=== PATIENT | female | born 1990 | race American Indian/Alaskan Native ===

== ENCOUNTER 2019-05-29 07:56 | Emergency (ER) | payer SELFPAY ==
[2019-05-29 08:02] VITALS: BP 143/89
--- NOTE | 2019-05-29 08:44 | Emergency Department Report ---
ED Abdominal Pain HPI - General Chief Complaint: Abdominal Pain Stated Complaint: SHARP PAIN/N/V/CRAMPING Time Seen by Provider: 05/29/19 08:33 Source: patient Mode of arrival: Ambulatory Limitations: No Limitations - History of Present Illness Initial Comments: 29-year-old -[place] female presents to the emergency room complaining of right lower quadrant abdominal pain since this morning. Patient reports nausea vomiting but denies any fever diarrhea or constipation. Patient does admit to pain with urination. Patient denies any vaginal discharge vaginal bleeding. She does admit to having sex with men unprotected. She reports pain is constant with walking and better with sitting. Denies any blood in urine. MD Complaint: abdominal pain -: This morning Location: RLQ Radiation: none Severity scale (0 -10): 6 Quality: cramping Consistency: intermittent Improves With: rest Worsens With: movement Associated Symptoms: nausea, vomiting, dysuria - Related Data LMP Date: 04/18/19 Previous Rx's Medication Instructions Recorded Last Taken Type Vit-Fe Fumar-FA [ 1 tab PO QDAY #90 tablet 05/29/19 Unknown Rx Vitamin] Allergies Allergy/AdvReac Type Severity Reaction Status Date / Time No Known Allergies Allergy Unverified 05/29/19 07:59 ED Review of Systems ROS: Stated complaint: SHARP PAIN/N/V/CRAMPING Other details as noted in HPI Comment: All other systems reviewed and negative Gastrointestinal: abdominal pain, nausea, vomiting Genitourinary: dysuria ED Past Medical Hx - Past Medical History Previous Medical History?: No - Surgical History Past Surgical History?: No - Social History Smoking Status: Never Smoker Substance Use Type: None - Medications Home Medications: Home Medications Medication Instructions Recorded Confirmed Last Taken Type Vit-Fe Fumar-FA [ 1 tab PO QDAY #90 tablet 05/29/19 Unknown Rx Vitamin] ED Physical Exam - General Limitations: No Limitations General appearance: alert, in no apparent distress - Head Head exam: Present: atraumatic, normocephalic - Eye Eye exam: Present: normal appearance - ENT ENT exam: Present: mucous membranes moist - Neck Neck exam: Present: normal inspection - Respiratory Respiratory exam: Present: normal lung sounds bilaterally. Absent: respiratory distress - Cardiovascular Cardiovascular Exam: Present: regular rate, normal rhythm. Absent: systolic murmur, diastolic murmur, rubs, gallop - GI/Abdominal GI/Abdominal exam: Present: soft, tenderness. Absent: distended - Rectal Rectal exam: Present: deferred - Neurological Exam Neurological exam: Present: alert, oriented X3, normal gait - Psychiatric Psychiatric exam: Present: normal affect, normal mood - Skin Skin exam: Present: warm, dry, intact, normal color. Absent: rash ED Course Vital Signs 05/29/19 07:59 Temperature 98.2 F Pulse Rate 103 H Respiratory 16 Rate Blood Pressure 143/89 O2 Sat by Pulse 99 Oximetry ED Medical Decision Making - Lab Data Result diagrams: 05/29/19 08:11 05/29/19 08:11 - Medical Decision Making 29-year-old -[place] female presents to the emergency room complaining of right lower quadrant abdominal pain since this morning. Patient reports nausea vomiting but denies any fever diarrhea or constipation. Patient does admit to pain with urination. Patient denies any vaginal discharge vaginal bleeding. She does admit to having sex with men unprotected. She reports pain is constant with walking and better with sitting. Denies any blood in urine. Critical care attestation.: If time is entered above; I have spent that time in minutes in the direct care of this critically ill patient, excluding procedure time. ED Disposition Clinical Impression: Qualifiers: Weeks of gestation: less than 8 weeks Qualified Code(s): Z3A.01 - Less than 8 weeks gestation of Disposition: DC-01 TO HOME OR SELFCARE Is pt being admited?: No Does the pt Need Aspirin: No Condition: Stable Instructions: Abdominal Pain (ED) Prescriptions: Vit-Fe Fumar-FA [ Vitamin] 1 tab PO QDAY #90 tablet Referrals: PRIMARY CARE [Primary Care Provider] - 3-5 Days [facility] [Provider Group] - 3-5 Days [facility] [Provider Group] - 3-5 Days Forms: Work/School Release Form(ED)
[2019-05-29 08:49] LABS: Bilirubin,Urine NEG (Negative); Blood,Urine SM (Negative); Color,Urine Yellow (Yellow); Mucus,Urine FEW /HPF; Protein,Urine <15 mg/dL mg/dL (Negative); Urobilinogen,Urine < 2.0 mg/dL (<2.0)
[2019-05-29 09:06] LABS: Basophils % (Auto) 0.6 % (0.0-1.8); Eosinophils # (Auto) 0.1 K/mm3 (0.0-0.4); Eosinophils % (Auto) 0.7 % (0.0-4.3); Hematocrit 44.4 % (30.3-42.9); Hemoglobin 14.5 gm/dl (10.1-14.3); Lymphocytes # (Auto) 3.1 K/mm3 (1.2-5.4); Mean Corpuscular HGB Conc 33 % (30-34); Mean Corpuscular Volume 85 fl (79-97); Monocytes # (Auto) 0.6 K/mm3 (0.0-0.8); Monocytes % (Auto) 7.9 % (0.0-7.3); Platelet Count 188 K/mm3 (140-440); Red Blood Count 5.24 M/mm3 (3.65-5.03); Red Cell Distribution Width 13.1 % (13.2-15.2)
[2019-05-29 09:07] LABS: HCG Qualitative,Urine Positive (Negative)
[2019-05-29 09:29] LABS: Alanine Aminotransferase 19 units/L (7-56); BUN/Creatinine Ratio 17; Blood Urea Nitrogen 12 mg/dL (7-17); Calcium 9.5 mg/dL (8.4-10.2); Hemolysis Index 40
--- NOTE | 2019-05-29 11:56 | Ultrasound Report ---
ULTRASOUND OB LESS THAN EQUAL TO 14 WEEKS FETUS ULTRASOUND OB TRANSVAGINAL HISTORY: Pelvic pain, right lower quadrant pain, positive COMPARISON: None. TECHNIQUE: Routine transabdominal and transvaginal OB ultrasound performed. FINDINGS: Uterus: The uterus is normal size measuring 9.7 x 3.7 x 5.4 cm. Gestational Sac: A tiny cyst is identified within the endometrium measuring 4 mm in diameter. This ma y represent an early intrauterine gestational sac correlating with a 5 week 1 day . Yolk Sac: Not seen Fetus/Embryo: Not seen Embryonic/ cardiac activity: Not seen Ovaries: The right ovary measures 2.8 x 1.9 x 3.6 cm and contains a 1.9 cm slightly complex cyst whic h probably represents a corpus luteum cyst. The left ovary measures 3.4 x 3.8 x 2.9 cm and contains a 1.9 cm simple cyst. Additional findings: None. IMPRESSION There appears to be a very early intrauterine gestational sac which correlates with a 5 week 1 day pr egnancy. No pole, yolk sac or heart tones are demonstrated at this time. Close interval f ollow-up is recommended. Please note that an ectopic is not entirely excluded at this time. Bilateral ovarian cysts as described. Signer Name: Blas Garcia Jr, MD Signed: 05/29/2019 11:51 AM Workstation Name: [id number]
--- NOTE | 2019-05-30 07:47 | Ultrasound Report ---
This examination was dictated along with ULTRASOUND OB <= 14 WEEKS FETUS performed the same day. Plea se refer to that report. Signer Name: Blas Garcia Jr, MD Signed: 05/30/2019 7:43 AM Workstation Name: [id number]
== END 2019-05-29 12:27 | disposition home or self-care (01) ==
LOC: ED 07:56
DX: O21.9 Vomiting of pregnancy, unspecified (principal); O26.891 Other specified pregnancy related conditions, first trimester; R10.31 Right lower quadrant pain; Z3A.00 Weeks of gestation of pregnancy not specified; Z79.899 Other long term (current) drug therapy
CPT/HCPCS: 36415; 76801; 76817; 80053; 81001; 81025; 84702; 85025; 99284